=== PATIENT | female | born 1990 | race Hispanic/Latino ===

== ENCOUNTER 2019-01-26 23:22 | Observation (INO) | payer MEDICAID ==
[~2019-01-26] VITALS: Ht 165.1 cm; Wt 102.5 kg
[2019-01-27] MEDS ORDERED: ACETAMINOPHEN 325 MG TAB ONE (00:06)
[2019-01-27 00:38] LABS: BILIRUBIN,URINE Negative (NEGATIVE); COLOR,URINE Dark Yellow (YELLOW); GLUCOSE, URINE (UA) Negative (NEGATIVE); KETONES,URINE Trace mg/dL (NEGATIVE); LEUKOCYTE ESTERASE ,URINE Negative (NEGATIVE); NITRATE,URINE Negative (NEGATIVE); OCCULT BLOOD,URINE Negative (NEGATIVE); PROTEIN,URINE Negative (NEGATIVE)
[2019-01-27 00:47] LABS: APPEARANCE,URINE CLEAR (CLEAR)
== END 2019-01-27 01:30 | disposition home or self-care (01) ==
LOC: EDH 23:22 → LDH 23:23
PROVIDERS: ADMIT Obstetrics & Gynecology; ATTEND Obstetrics & Gynecology
DX: O26.893 Other specified pregnancy related conditions, third trimester (principal); R51 Headache; R42 Dizziness and giddiness; Z87.442 Personal history of urinary calculi; Z88.1 Allergy status to other antibiotic agents; Z3A.36 36 weeks gestation of pregnancy
CPT/HCPCS: 81003; 99284; G0378

== ENCOUNTER 2019-02-06 11:42 | Inpatient (IN) | payer MEDICAID ==
[~2019-02-06] VITALS: Ht 165.1 cm; Wt 103.4 kg
[2019-02-06] MEDS ORDERED: EPHEDRINE SULFATE 50 MG/ML AMPULE IVP PRN (12:45)
[2019-02-06] MEDS ORDERED: PROMETHAZINE HCL 25 MG/ML 1ML AMPULE IM PRN (12:45)
[2019-02-06] MEDS ORDERED: LACTATED RINGERS 500 ML 500 ML IV PRN (12:45)
[2019-02-06] MEDS ORDERED: OXYTOCIN 10 USP UNITS/ML 20 UNIT in LACTATED RINGERS 1000ML 1,000 ML IV SCH (12:45)
[2019-02-06] MEDS ORDERED: MEPERIDINE-PF 50 MG/ML SYG IVP PRN (12:45)
[2019-02-06] MEDS ORDERED: NALOXONE HCL 0.4 MG/1 ML ML IV PRN (12:45)
[2019-02-06] MEDS ORDERED: ROPIVACAINE 0.2% 100ML VIAL 100 ML EP SCH (12:45)
[2019-02-06] MEDS: LACTATED RINGERS 1000ML 1,000 ML IV PRN ×2 (13:22→19:49)
[2019-02-06] MEDS: OXYTOCIN-LR 20 UNITS/1000 ML 1,000 ML IV SCH (13:22)
[2019-02-06 13:24] LABS: HEMATOCRIT 36.9 % (36-48); MEAN CORPUSCULAR HEMOGLOBIN 27.1 pg (27.0-33.0); MEAN CORPUSCULAR HGB CONC 33.2 g/dL (32.0-36.0); MEAN CORPUSCULAR VOLUME 81.6 fL (79-99); PLATELET COUNT (AUTO) 226 K/uL (130-400); RED BLOOD CELL COUNT(AUTO) 4.52 MIL/uL (4.00-5.50); WHITE BLOOD COUNT (AUTO) 13.9 K/uL (4.8-10.8)
[2019-02-06 13:26] LABS: APPEARANCE,URINE Clear (CLEAR); BILIRUBIN,URINE Negative (NEGATIVE); COLOR,URINE Yellow (YELLOW); GLUCOSE, URINE (UA) Negative (NEGATIVE); KETONES,URINE 15 mg/dL (NEGATIVE); LEUKOCYTE ESTERASE ,URINE Small (NEGATIVE); NITRATE,URINE Negative (NEGATIVE); OCCULT BLOOD,URINE Negative (NEGATIVE); PROTEIN,URINE Negative (NEGATIVE); UROBILINOGEN,URINE 0.2 mg/dL (0.2-1.0)
[2019-02-06 13:42] LABS: BACTERIA,URINE Few /HPF (None Seen); RBC,URINE 0-1 /HPF (0-1); SQUAMOUS EPITHELIAL CELL,UR Few /HPF (0-2)
[2019-02-06 13:43] LABS: MUCUS,URINE Few LPF (None Seen)
[2019-02-06 13:45] LABS: INR 0.95 (0.85-1.15); PARTIAL THROMBOPLASTIN TIME 25.4 SEC (26.3-35.5)
[2019-02-06 13:47] LABS: CREATININE 0.6 mg/dL (0.5-1.5)
[2019-02-06 13:49] LABS: ALBUMIN 2.5 g/dL (3.5-5.0); BILIRUBIN,TOTAL 0.3 mg/dL (0.2-1.0); TOTAL PROTEIN, SERUM 6.5 g/dL (6.0-8.3); URIC ACID 5.4 mg/dL (2.6-7.2)
[2019-02-06] MEDS ORDERED: FENTANYL CITRATE PF 50 MCG/1 ML 2ML VIAL ONE (14:17)
[2019-02-06] MEDS ORDERED: LIDOCAINE 2%-EPI 1:200,000 20 ML VIAL IJ ONE (15:01)
[2019-02-06] MEDS ORDERED: ACETAMINOPHEN 325 MG TAB PO ONE (19:30)
[2019-02-06 21:02] VITALS: BP 111/69
[2019-02-07] MEDS ORDERED: LIDOCAINE HCL 1% 20 ML VIAL ONE (02:59)
[2019-02-07] MEDS ORDERED: BENZOCAINE/LANOLIN/ALOE VERA 60 ML AEROSOL TP PRN (03:45)
[2019-02-07] MEDS ORDERED: LANOLIN 30GM OINTMENT TP PRN (03:45)
[2019-02-07] MEDS ORDERED: WITCH HAZEL 1 PAD TP PRN (03:45)
[2019-02-07] MEDS: OXYTOCIN-LR 20 UNITS/1000 ML 1,000 ML IV SCH ×2 (03:45→04:39)
[2019-02-07] MEDS ORDERED: DIPH,PERTUSS(ACELL),TET VAC/PF 0.5 ML VIAL IM PRN (03:45)
[2019-02-07] MEDS ORDERED: IBUPROFEN 600 MG TABLET ONE (04:26)
--- NOTE | 2019-02-07 07:30 | NUR ---
PT ORIENTED TO ROOM. FUNDUS IS FIRM AT UMBILICUS, BLEEDING IS SMALL. PAIN TO BACK AND HEAD REPORTED. PT LAID FLAT, PAIN TO HEAD CONTINUED. PT STATES SHE HAS NOT RESTED. ASSISTED PT OOB TO RESTROOM. C/O TINGLING TO RIGHT FOOT. PT ABLE TO AMBULATE WITHOUT ANY PROBLEMS.
[2019-02-07 07:32] VITALS: BP 126/79
[2019-02-07] MEDS ORDERED: FLU VACC QS2019-20 36MOS UP/PF 60 MCG/0.5 ML ML IM ONE (07:45)
[2019-02-07] MEDS: DOCUSATE SODIUM 100 MG CAP PO SCH ×2 (07:50→21:01)
[2019-02-07] MEDS: ACETAMINOPHEN-CODEINE 300/30MG TAB PO PRN ×2 (07:53→16:46)
[2019-02-07 08:12] LABS: HEPATITIS Bs ANTIGEN SCREEN P Negative (Negative)
[2019-02-07] MEDS ORDERED: FLU VACC QS2019-20 36MOS UP/PF 60 MCG/0.5 ML ML IM SCH (09:00)
--- NOTE | 2019-02-07 10:50 | NUR ---
PT C/O PAIN TO LOWER BACK. WARM PACK GIVEN WRAPPED IN TOWEL. WILL MEDICATE WITH IBUPROFEN 600MG.
[2019-02-07] MEDS: IBUPROFEN 600 MG TABLET PO PRN ×2 (10:51→21:01)
[2019-02-07 11:35] VITALS: BP 123/67
[2019-02-07] MEDS ORDERED: PNV1TABL17 PO (12:08)
--- NOTE | 2019-02-07 13:55 | NUR ---
PT STATES PAIN TO BACK IS ALOT BETTER. NO NEED FOR PAIN MEDICATION AT THIS TIME. INFORMED PT ON QUIET TIME FROM [id number]. PT CALL LIGHT LEFT IN REACH. ADVISED TO CALL WITH ANY NEEDS OR CONCERNS. PT VOICED UNDERSTANDING.
[2019-02-07 16:18] VITALS: BP 141/89
--- NOTE | 2019-02-07 16:50 | NUR ---
DR. SOLORIO ROUNDING ON PATIENT AT THIS TIME. MD AWARE OF BPS, PT TO REST AND LIMIT VISITORS.
--- NOTE | 2019-02-07 16:55 | NUR ---
PT HAS VISITORS AND HER CHILDREN IN THE ROOM. PT MADE AWARE THAT DR. SOLORIO WANTS PT TO LIMIT VISITORS AND TO REST TO CONTROL BLOOD PRESSURES. PT VOICED UNDERSTANDING; STATES SHE WILL HAVE [facility]ILY [facility] OFFICE COORDINATOR HER CHILDREN.
[2019-02-07 19:37] VITALS: BP 122/81
[2019-02-07 23:29] VITALS: BP 124/73
[2019-02-08] MEDS: OXYTOCIN-LR 20 UNITS/1000 ML 1,000 ML IV SCH (03:45)
[2019-02-08 03:48] VITALS: BP 114/78
[2019-02-08] MEDS: ACETAMINOPHEN-CODEINE 300/30MG TAB PO PRN (06:12)
[2019-02-08] MEDS: DOCUSATE SODIUM 100 MG CAP PO SCH (07:23)
[2019-02-08 07:25] VITALS: BP 137/95
[2019-02-08] MEDS: IBUPROFEN 600 MG TABLET PO PRN (07:25)
--- NOTE | 2019-02-08 11:05 | NUR ---
RHOGAM GIVEN IM TO RIGHT DELTOID. NO BLOOD ON ASPIRATION. PT TOLERATED WELL.
--- NOTE | 2019-02-08 11:07 | NUR ---
DISCHARGE INSTRUCTIONS READ AND EXPLAINED TO PATIENT. PRESCRIPTION FOR MOTRIN 800 AND COLACE 100MG HANDED TO PATIENT. QUESTIONS INVITED AND ANSWERED. NO COMPLAINTS OR CONCERNS ADDRESSED FROM PATIENT ON DISCHARGE.
[2019-02-08 11:40] VITALS: BP 138/86
--- NOTE | 2019-02-08 12:20 | NUR ---
PATIENT LEFT UNIT VIA WHEELCHAIR WITH BABY IN ARMS. PERSONAL VEHICLE USED FOR TRANSPORTATION. BABY SECURE IN CARSEAT.
== END 2019-02-08 12:20 | disposition home or self-care (01) | DRG 560 ==
LOC: LDH 11:42 → OBSVTOIN 11:42 → WSH 02-07 06:10
PROVIDERS: ADMIT Obstetrics & Gynecology; ATTEND Obstetrics & Gynecology
PROC: 10D07Z6 Extraction of Products of Conception, Vacuum, Via Natural or Artificial Opening (ICD-10-PCS; 2019-02-07)
PROC: 3E0R3BZ Introduction of Anesthetic Agent into Spinal Canal, Percutaneous Approach (ICD-10-PCS; 2019-02-07)
PROC: 00HU33Z Insertion of Infusion Device into Spinal Canal, Percutaneous Approach (ICD-10-PCS; 2019-02-07)
PROC: 3E02340 Introduction of Influenza Vaccine into Muscle, Percutaneous Approach (ICD-10-PCS; 2019-02-07)
PROC: 3E02340 Introduction of Influenza Vaccine into Muscle, Percutaneous Approach (ICD-10-PCS; 2019-02-07)
PROC: 3E0234Z Introduction of Serum, Toxoid and Vaccine into Muscle, Percutaneous Approach (ICD-10-PCS; principal; 2019-02-08)
DX: O13.4 Gestational [pregnancy-induced] hypertension without significant proteinuria, complicating childbirth (principal); Z37.0 Single live birth; O99.214 Obesity complicating childbirth; Z29.13 Encounter for prophylactic Rho(D) immune globulin; Z3A.37 37 weeks gestation of pregnancy; Z88.8 Allergy status to other drugs, medicaments and biological substances
CPT/HCPCS: 36415; 80053; 81001; 83033; 84550; 85027; 85384; 85610; 85730; 86592; 86850; 86900; 86901; 87340; 90715; A4314; A4606; G0378; J2590; J2791; J2795; J3010; J3490; J7120; Q2035